=== PATIENT | male | born 1955 | race Caucasian/White ===

== ENCOUNTER 2020-06-10 09:56 | Emergency (ER) | payer MEDICARE, MEDICAID ==
[~2020-06-10] VITALS: Ht 172.7 cm; Wt 61.6 kg
--- NOTE | 2020-06-10 10:10 | NUR ---
PT AMBULATES TO ROOM FROM LOBBY. PT REPORTS RT BUTTOCKS PAIN X3 WEEKS. PT ALSO REPORTS REDNESS AND SWELLING. DR. MCMILLAN AT BEDSIDE FOR EVALUATION. PT RESTING IN [facility], NAD NOTED AT THIS TIME, WILL CONTINUE TO MONITOR.
[2020-06-10] MEDS ORDERED: ONDANSETRON 2MG/ML, 2ML ONE (10:48)
[2020-06-10] MEDS ORDERED: HYDROmorphone 1 MG/ML, 1ML INJ ONE ×2 (10:48→11:48)
[2020-06-10 10:59] LABS: BASOPHILS % (AUTO) 1 % (0-1); EOSINOPHILS % (AUTO) 2 % (1-7); LYMPHOCYTES % (AUTO) 10 % (22-44); MEAN CORPUSCULAR HEMOGLOBIN 29.2 pg (27.5-34.5); MEAN CORPUSCULAR HGB CONC 33.2 g/dL (33.2-36.2); MEAN PLATELET VOLUME 7.2 fL (7.4-10.4); MONOCYTES % (AUTO) 10 % (2-9); NEUTROPHILS % (AUTO) 78 % (42-75); PLATELET COUNT 357 x10^3/uL (130-400); RED BLOOD COUNT 4.53 x10^6/uL (4.38-5.82); RED CELL DISTRIBUTION WIDTH 13.3 % (9.4-14.8)
[2020-06-10] MEDS: HYDROmorphone 1 MG/ML, 1ML INJ IVPush PRN ×2 (11:00→11:51)
[2020-06-10] MEDS ORDERED: AMPICILLIN/SULBACTAM 3 GM in SODIUM CHLORIDE 0.9% 100 ML IV ONE (11:00)
[2020-06-10] MEDS ORDERED: ONDANSETRON 2MG/ML, 2ML IVPush ONE (11:00)
[2020-06-10] MEDS ORDERED: SODIUM CHLORIDE FLUSH 10ML SYR IVF ONE (11:00)
[2020-06-10 11:14] LABS: ALBUMIN 2.9 g/dL (3.4-5.0); ANION GAP 5 mmol/L (5-15); CALCIUM 9.1 mg/dL (8.5-10.1); CHLORIDE 104 mmol/L (98-107)
[2020-06-10 11:17] LABS: ALANINE AMINOTRANSFERASE 25 U/L (12-78); ALKALINE PHOSPHATASE 97 U/L (45-117); BILIRUBIN,TOTAL 0.5 mg/dL (0.2-1.0); CREATININE 1.08 mg/dL (0.7-1.3); TOTAL PROTEIN 7.7 g/dL (6.4-8.2)
[2020-06-10 11:27] LABS: MD SCAN
--- NOTE | 2020-06-10 11:39 | NUR ---
PT TO CT VIA [facility].
[2020-06-10] MEDS ORDERED: OMNIPAQUE 350 MG/ML, 100ML BOTTLE ONE (11:42)
[2020-06-10] MEDS ORDERED: LIDOCAINE 1%, 10ML INFIL ONE (12:00)
[2020-06-10] MEDS ORDERED: LIDOCAINE-MPF 1%, 5ML ONE (12:03)
[2020-06-10 12:43] VITALS: BP 124/89
== END 2020-06-10 12:54 | disposition home or self-care (01) ==
LOC: ED 12:49
DX: L02.31 Cutaneous abscess of buttock (principal); R50.9 Fever, unspecified; I49.8 Other specified cardiac arrhythmias
CPT/HCPCS: 10060; 36415; 71045; 72193; 80053; 83605; 85025; 87040; 93005; 96365; 96375; 96376; 99285; J0295; J1170; J2405; Q9967